=== PATIENT | male | born 1985 | race Asian ===

== ENCOUNTER 2017-05-19 23:41 | Emergency (ER) | payer OTHER ==
[2017-05-19 23:45] VITALS: BP 146/79; PULSE 112; RESP 18; TEMP 97.9; O2SAT 98
--- NOTE | 2017-05-19 23:51 | EDPHY ---
H & P Stated Complaint: itch on anus Time Seen by Provider: 05/19/17 23:50 HPI/ROS: HPI: This is a 32-year-old male who presents with Chief Complaint: itch on anus Location: Anal Quality: Itching Duration: 3 days Signs and Symptoms: no fever, no nausea, no vomiting, no hematemesis, no blood in stool, no abdominal bloating, no diarrhea, no back pain, no urinary symptoms , no testicular/groin pain, no indigestion, no chest pain, no shortness of breath Timing: Unknown Severity: Moderate Context: Patient has a history of constipation presents with complaints of anal itching after having a bowel movement 3 days ago. He used a mirror to visualize his anus this evening and noticed an outpouching of skin. He became extremely concerned that it was warts or an STD. He adamantly denies any anal intercourse or insertion of objects into his rectum. He was tested recently for all STDs and was negative. Patient had a colonoscopy last year that was within normal limits per patient. He is eating normally. Denies blood in stool /hematemesis/abdominal pain. Denies pruritus at night. After further questioning, patient reports that he had random unprotected sexual intercourse 3 days ago. Modifying Factors: None Comment: ROS: see HPI Constitutional: No fever, no chills, no weight loss Eyes: No blurred vision Respiratory: No shortness of breath, no cough Cardiovascular: No chest pain, no palpitations Gastrointestinal: No nausea, no vomiting, no diarrhea, no hematemesis, no blood in stool Genitourinary: No dysuria, no blood in urine Extremities: No myalgias, no edema Neurologic: No weakness, no numbness Skin: No rashes, no petechiae Hematologic: No bruising, no bleeding MEDICAL/SURGICAL/SOCIAL HISTORY: Medical history: Generally healthy. Does not take any regular medications. Surgical history: Denies Social history: Employed. CONSTITUTIONAL: adult male, nervous but nontoxic in appearance awake and alert, no obvious distress HEENT: Atraumatic and normocephalic, PERRL, EOMI. Tympanic membranes clear. Oropharynx clear, no exudate and moist pink mucosa. Airway patent. No lymphadenopathy. No meningismus. Cardiovascular: Normal S1/S2, tachycardia, regular rhythm, without murmur rub or gallop. PULMONARY/CHEST: Symmetrical and nontender. Clear to auscultation bilaterally. Good air movement. No accessory muscle usage. ABDOMEN: Soft, nondistended, nontender, no rebound, no guarding, no peritoneal signs, no masses or organomegaly. No CVAT. RECTAL: Good sphincter tone, light brown stool in vault, small non thrombosed external hemorrhoids at 12:00 position and 6:00 position, no fissures, no palpable masses, guaiac negative EXTREMITIES: 2/2 pulses, strength 5/5, no deformities, no clubbing, no cyanosis or edema. NEUROLOGICAL: no focal neuro deficits. GCS 15. SKIN: Warm and dry, no erythema. no rash. Good capillary refill. Source: Patient Exam Limitations: No limitations - Personal History Current Tetanus/Diphtheria Vaccine: Yes - Medical/Surgical History Hx Asthma: No Hx Chronic Respiratory Disease: No Hx Diabetes: No Hx Cardiac Disease: No Hx Renal Disease: No Hx Cirrhosis: No Hx Alcoholism: No Hx HIV/AIDS: No Hx Splenectomy or Spleen Trauma: No Other PMH: denies - Social History Smoking Status: Never smoked Constitutional: Initial Vital Signs Temperature (C) 36.6 C 05/19/17 23:42 Heart Rate 112 H 05/19/17 23:42 Respiratory Rate 18 05/19/17 23:42 Blood Pressure 146/79 H 05/19/17 23:42 O2 Sat (%) 98 05/19/17 23:42 O2 Delivery Mode Room Air Allergies/Adverse Reactions: No Known Allergies Allergy (Verified 05/19/17 23:45) Home Medications: Medication Instructions Recorded Finasteride 05/19/17 Hydrocortisone Acetate 25 mg [place] Q6 PRN #7 supp 05/20/17 [Hemorrhoidal Hc 25 mg supp (*)] Medical Decision Making ED Course/Re-evaluation: Guaiac stool ordered No signs of thrombosed hemorrhoids/anal trauma or laceration Patient has 2 small external non-thrombosed hemorrhoids; advised to prevent constipation and given Anusol HC suppositories to use as needed This patient was seen under the supervision of my secondary supervising physician. I evaluated care for this patient independently. Discussed this patient with Dr. Hoyos who did not see the patient. Differential Diagnosis: Differential diagnosis includes but is not limited to perirectal inflammation, STDs, hemorrhoids, Lesvia infection. - Data Points Laboratory Results: 05/20/17 00:00 Stool Occult Bld Scrn NEGATIVE (NEGATIVE) Departure - Departure Disposition: Home, Routine, Self-Care Clinical Impression: External hemorrhoids without complication Condition: Good Instructions: Hemorrhoids (ED) Additional Instructions: Please prevent constipation by drinking plenty of fluids, eating a diet high in fruits and vegetables. Please do not strain while having a bowel movement. Take MiraLax daily as needed for constipation. Refrain from having anal intercourse or inserting objects into your anus until symptoms have resolved. Referrals: [facility],. [Clinic] - As per Instructions Prescriptions: Hydrocortisone Acetate [Hemorrhoidal Hc 25 mg supp (*)] 25 mg [place] Q6 PRN #7 supp PRN Reason: Inflammation
== END 2017-05-20 00:08 | disposition home or self-care (01) ==
DX: K64.4 Residual hemorrhoidal skin tags (principal)

== ENCOUNTER 2017-08-14 20:05 | Emergency (ER) | payer OTHER ==
[2017-08-14 20:16] VITALS: BP 129/84
--- NOTE | 2017-08-14 21:02 | EDPHY ---
H & P Time Seen by Provider: 08/14/17 20:36 HPI/ROS: CHIEF COMPLAINT: Rectal pain HISTORY OF PRESENT ILLNESS: 32-year-old male presents to the emergency department with 1 day history of pain in his rectum. Denies any other known trauma or injury. He states that he felt fine while he was at work sitting all day and then when he went to go run he felt some pain in his rectum. He denies any known swelling. He just states that it hurts when he walks and moves. He has not had a bowel movement since this started just prior to arrival. No urinary symptoms. No abdominal pain. No back pain. Patient is currently undergoing treatment for possible Lyme disease. No fevers or chills. REVIEW OF SYSTEMS: Constitutional: No fever, no chills. Eyes: No double or blurry vision. ENT: No sore throat. Respiratory: No cough, no shortness of breath. Cardiac: No chest pain. Gastrointestinal: No abdominal pain, vomiting or diarrhea. Genitourinary: No dysuria. Musculoskeletal: No neck or back pain. Skin: No rashes. Neurological: No headache. Past Medical/Surgical History: Currently undergoing treatment for Lyme disease Social History: Single Smoking Status: Never smoked Physical Exam: General Appearance: Alert, no distress. Anxious. Eyes: Pupils equal and round. Extraocular motions are all intact. ENT: Mouth: Mucous membranes moist. Respiratory: No wheezing, rhonchi, or rales, lungs are clear to auscultation. Cardiovascular: Regular rate and rhythm. Gastrointestinal: Abdomen is soft and nontender, no masses, no rebound or guarding, bowel sounds normal. Rectal exam: There is no redness or swelling or evidence of perirectal abscess. There is no induration. No pustules. No fissures or lacerations. Nontender to palpate. Neurological: Alert and oriented x 3, cranial nerves II through XII grossly intact Skin: Warm and dry, no rashes. Musculoskeletal: Nontender to palpate along the cervical, thoracic or lumbar spine. Neck is supple. Extremities: Full range of motion and no peripheral edema. Psychiatric: Patient is oriented X 3, there is no agitation. Constitutional: Initial Vital Signs Temperature (C) 37.1 C 08/14/17 20:14 Heart Rate 112 H 08/14/17 20:14 Respiratory Rate 16 08/14/17 20:14 Blood Pressure 129/84 H 08/14/17 20:14 O2 Sat (%) 97 08/14/17 20:14 O2 Delivery Mode Room Air Allergies/Adverse Reactions: No Known Allergies Allergy (Verified 05/19/17 23:45) Home Medications: Medication Instructions Recorded Doxycycline Monohydrate 08/14/17 Refampin 08/14/17 Medical Decision Making ED Course/Re-evaluation: 32-year-old male presents with rectal pain while he was running today. He states that it is better however has not resolved. On examination there is no evidence of perirectal abscess. Palpating around the rectum does not cause any discomfort. There is no obvious hemorrhoid. Patient was reassured. He was concerned that this may be related to some of the medication that he is taking for possible Lyme disease. I encouraged follow up with his primary care provider. I did give him some precautionary measures and he will return if he develops any rectal swelling, rectal bleeding, abdominal pain or if he feels worse in any way. He was comfortable with this plan. Differential Diagnosis: Including but not limited to perirectal abscess, anal fissure, internal hemorrhoid, external hemorrhoid, sciatica, radiculopathy, adverse medication reaction Departure - Departure Disposition: Home, Routine, Self-Care Clinical Impression: Rectal pain Condition: Good Instructions: Rectal Pain (ED) Additional Instructions: Warm compresses as discussed. Return if you develop swelling in your rectum or if you feel worse in any way. Ibuprofen 600mg every 8 hours for pain as directed. Referrals: Holly Tapia MD [Medical Doctor] - 2-3 days, if not improved ( Primary care provider animal control officer)
== END 2017-08-14 21:00 | disposition home or self-care (01) ==
DX: K62.89 Other specified diseases of anus and rectum (principal)

== ENCOUNTER 2017-09-16 20:24 | Emergency (ER) | payer OTHER ==
--- NOTE | 2017-09-16 20:44 | CPEKG ---
Heart Rate: 83 RR Interval: 723 P-R Interval: 132 QRSD Interval: 96 QT Interval: 364 QTC Interval: 428 P Midway: 61 QRS Midway: 54 T Wave Midway: 39 EKG Severity - NORMAL ECG - EKG Impression: SINUS RHYTHM Electronically Signed By: Chris Avina 16-Sep-2017 21:12:35
--- NOTE | 2017-09-16 21:01 | EDPHY ---
H & P Stated Complaint: "HEART RACING"/ HR 81 Time Seen by Provider: 09/16/17 21:00 HPI/ROS: CHIEF COMPLAINT: Palpitations HISTORY OF PRESENT ILLNESS: The patient presents to the ED with complaints of palpitations. He reports his heart rate has been in the 80s today and this is atypical for him. He denies any chest pain or shortness of breath. The patient is somewhat concerned about the possibility of undiagnosed Lyme disease although he has no risk factors for this. He reportedly has been having a mild intermittent rash. He was extensively evaluated by Infectious Disease at our hospital. He has come under the care of a Lyme disease specialist and is currently being evaluated for this condition. The patient denies any changes to medications. He denies anxiety. He denies additional complaints. REVIEW OF SYSTEMS: A comprehensive 10 point review of systems is otherwise negative aside from elements mentioned in the history of present illness. Source: Patient - Personal History Current Tetanus Diphtheria and Acellular Pertussis (TDAP): Unsure - Medical/Surgical History Hx Asthma: No Hx Chronic Respiratory Disease: No Hx Diabetes: No Hx Cardiac Disease: No Hx Renal Disease: No Hx Cirrhosis: No Hx Alcoholism: No Hx HIV/AIDS: No Hx Splenectomy or Spleen Trauma: No Other PMH: denies - Social History Smoking Status: Never smoked - Physical Exam Exam: General Appearance: Alert, no distress Eyes: Pupils equal and round no pallor or injection ENT, Mouth: Mucous membranes moist Respiratory: There are no retractions, lungs are clear to auscultation Cardiovascular: Regular rate and rhythm Gastrointestinal: Abdomen is soft and nontender, no masses, bowel sounds normal Neurological: A&O, normal motor function, normal sensory exam, normal cranial nerves Skin: Warm and dry, no rashes Musculoskeletal: Neck is supple nontender Extremities: symmetrical, full range of motion Constitutional: Initial Vital Signs Temperature (C) 36.7 C 09/16/17 20:30 Heart Rate 81 09/16/17 20:30 Respiratory Rate 16 09/16/17 20:30 Blood Pressure 122/81 H 09/16/17 20:30 O2 Sat (%) 98 09/16/17 20:30 O2 Delivery Mode Room Air Allergies/Adverse Reactions: No Known Allergies Allergy (Verified 05/19/17 23:45) Home Medications: Medication Instructions Recorded Bactrim DS 09/16/17 Finasteride 09/16/17 Medical Decision Making - Diagnostics EKG Interpretation: EKG: Complete interpretation has been separately recorded in the [facility] archive. Summary impression: Sinus rhythm, rate 83 ED Course/Re-evaluation: The patient presents to the ED with palpitations. He has no arrhythmia noted in the emergency department. I certainly think it is possible the symptoms are secondary to anxiety surrounding the possibility of Lyme disease. I have tried to reassure the patient that I do not think this is likely as he has had no exposure to tick bites in areas where Lyme disease is endemic. The patient was observed in the emergency department for an hour without any arrhythmia. I have told him that he can certainly follow up with Cardiology for consideration of a Holter monitor for any ongoing palpitations. Departure - Departure Disposition: Home, Routine, Self-Care Clinical Impression: Palpitations Condition: Good Instructions: Heart Palpitations (ED) Additional Instructions: 1. Your EKG demonstrates no evidence of an abnormality. 2. You can follow up with Cardiology for consideration of a Holter monitor for any ongoing symptoms of palpitation. You have been given the contact number of our on-call loading unit operator powder charging Dr. Valiente who would be happy to see you in follow-up. Referrals: Anca Valiente MD [Medical Doctor] - As per Instructions
[2017-09-16 21:33] VITALS: BP 116/79
== END 2017-09-16 21:33 | disposition home or self-care (01) ==
LOC: EEVIPCON 20:24
DX: R00.2 Palpitations (principal)